=== PATIENT | female | born 1960 | race American Indian/Alaskan Native ===

== ENCOUNTER 2019-09-14 15:24 | Outpatient (CLI) | payer BC ==
--- NOTE | 2019-09-15 10:22 | Mammography Report ---
DIGITAL BILATERAL DIAGNOSTIC MAMMOGRAM WITH CAD, WITHOUT TOMOSYNTHESIS 09/14/2019 INDICATION: LEFT BREAST PAIN TECHNIQUE: Digital mammographic imaging was performed. This examination was interpreted with the benefit of Computer-aided Detection analysis. COMPARISON: None available. Breast Density: The breasts are heterogeneously dense, which may obscure small masses. FINDINGS: A right outer biopsy clip and a left outer biopsy clip. No mass, architectural distortion o r suspicious calcifications of the right breast. Mild parenchymal asymmetry with a suggestion of poss ible mixed density mass with significant fatty component in the outer left breast. Possible oil cysts without wall calcification are suggested on the left MLO view. No architectural distortion or suspic ious calcifications of the left breast. IMPRESSION: 1. Changes in the left breast suggest possible benign fat necrosis which may explain left breast pain . Recommend global left breast ultrasound for further evaluation. 2. Negative right breast. Follow up recommendation: Global left breast ultrasound. Category 0: Incomplete. Needs additional imaging evaluation and/or prior mammograms for comparison. A "normal" or negative report should not discourage follow up or biopsy of a clinically significant f inding. A written summary of these findings will be mailed to the patient. The patient will be entered into a mammography reporting system which will generate a reminder letter for the patient's next appointmen t at the appropriate interval. According to the [employer], yearly mammograms are recommended starting at age 40 and continuing as long as a woman is in good health. Breast MRI is recommended for women with an jonel roximately 20-25% or greater lifetime risk of breast cancer, including women with a strong family his tory of breast or ovarian cancer and women who have been treated for Hodgkin's disease. Signer Name: Jonh Gaines MD Signed: 09/15/2019 10:18 AM Workstation Name: [id number]
== END 2019-09-14 15:25 | disposition home or self-care (01) ==
LOC: SPVWC 15:24
PROVIDERS: ATTEND Surgery
DX: N64.4 Mastodynia (principal)
CPT/HCPCS: 77066